=== PATIENT | male | born 1990 | race Caucasian/White ===

== ENCOUNTER → 2021-02-03 11:20 | Outpatient (CLI) | payer OTHER, SELFPAY ==
[2021-02-03 12:05] LABS: Add Manual Diff / Slide Review NO; Basophils Absolute Auto 100 /uL (0-100); Basophils Percent Auto 0.8 % (0-2); Eosinophils Absolute Auto 800 /uL (0-450); Eosinophils Percent Auto 8.2 % (2-4); Hematocrit 47.3 % (41-53); Lymphocytes Absolute Auto 3300 /uL (1100-4500); Lymphocytes Percent Auto 35.5 % (25-40); Mean Corpuscular HGB Conc 33.7 % (30-36); Mean Corpuscular Hemoglobin 30.9 PG (26-34); Mean Corpuscular Volume 91.5 fL (80-100); Monocytes Absolute Auto 800 /uL (0-900); Monocytes Percent Auto 8.5 % (3-14); Neutrophils Absolute Auto 4300 /uL (1500-7000); Platelet Count 269 X10^3/uL (150-400); Red Blood Cell Count 5.17 X10^6/uL (4.5-5.9); Red Cell Distribution Width 13.3 % (11.6-14.8); White Blood Cell Count 9.2 X10^3/uL (4.5-11.0)
[2021-02-03 12:14] LABS: Alanine Aminotransferase 45 IU/L (<50); Albumin 4.7 g/dL (3.5-5.0); Albumin Globulin Ratio 1.5 (1.0-2.8); Alkaline Phosphatase 64 U/L (38-126); Aspartate Aminotransferase 34 IU/L (17-59); BUN Creatinine Ratio 15.1 (6-22); Bilirubin Total 1.2 mg/dL (0.2-1.3); Blood Urea Nitrogen 13 mg/dL (9-20); Calcium 9.7 mg/dL (8.4-10.2); Carbon Dioxide 26 mmol/L (22-32); Chloride 103 mmol/L (98-107); Cholesterol 239 mg/dL (140-199); Estimated Glomerular Filt Rate > 60.0 mL/min (>60); Globulin 3.1 g/dL (1.7-4.1); Glucose 113 mg/dL (70-100); HDL Cholesterol 54 mg/dL (40-60); HEMOLYSIS < 15 (0-50); LDL Cholesterol Calculated 162 mg/dL (<100); Potassium 4.5 mmol/L (3.4-5.1); Sodium 136 mmol/L (137-145); Total Protein 7.8 g/dL (6.3-8.2); Triglycerides 113 mg/dL (35-150)
[2021-02-03 13:25] LABS: Creatinine Urine Random 159.4 mg/dL
[2021-02-03 13:30] LABS: Microalbumi Creatinin Ratio Ur 6.2 ug/mg CR (<30)
== END ==
PROVIDERS: PCP Family Medicine; Referring Provider Family Medicine; Visit Provider Family Medicine
DX: R03.0 Elevated blood-pressure reading, without diagnosis of hypertension (principal); Z68.31 Body mass index [BMI] 31.0-31.9, adult
CPT/HCPCS: 36415; 80053; 80061; 82043; 82570; 84443; 85025

== ENCOUNTER 2021-03-12 17:29 | Emergency (ER) | payer OTHER, SELFPAY ==
[2021-03-12 17:36] VITALS: BP 184/86; PULSE 91; RESP 20; TEMP 36.6; O2SAT 99
--- NOTE | 2021-03-12 17:39 | DI.RAD.S_ITS ---
PROCEDURE: XR ELBOW LT MIN 3V INDICATIONS: fall TECHNIQUE: 3 views of the elbow were acquired. COMPARISON: None. FINDINGS: Bones: There is an apparent faint avulsion fracture seen along the radial head on 1 image. No additional focal plain film abnormality can be seen. Soft tissues: No elbow joint effusion. No suspicious soft tissue calcifications. IMPRESSION: Apparent avulsion fracture seen of the radial head on 1 image. If it would be helpful for clinical management decision making, please consider a dedicated elbow CT for further evaluation. Dictated by: Patel Ibrahim M.D. on 03/12/2021 at 16:55 Approved by: Patel Ibrahim M.D. on 03/12/2021 at 16:56
--- NOTE | 2021-03-12 19:01 | ED_ITS ---
HPI - Extremity Injury (Upper) General Chief Complaint: Extremity Injury, Upper Stated Complaint: Possible Left Arm Break Time Seen by Provider: 03/12/21 18:40 Source: patient Mode of arrival: Ambulatory History of Present Illness HPI narrative: Patient here with family. Complains injury to the left elbow. He states he jumped over a fence and caught a chain that tangled up with his foot causing him to fall the left side. Abrasion to the left patella. Denies any knee pain. Needs tetanus shot. States he felt pain immediately to his left elbow with deformity prior to arrival he states he moved his elbow and felt it pop back in place. No numbness tingling or weakness. No prior injury to this elbow. Denies any other injuries to the head neck abdomen chest back pelvis or hips. Related Data Previous Rx's Medication Instructions Recorded amlodipine 5 mg tablet 5 mg PO DAILY #90 tab 02/21/21 hydrocodone 5 mg-acetaminophen 325 1 tab PO Q6H PRN #12 tab 03/12/21 mg tablet ondansetron 4 mg disintegrating 4 mg PO Q8H PRN #10 tab 03/12/21 tablet Allergies Allergy/AdvReac Type Severity Reaction Status Date / Time From ZITHROMAX Allergy Severe THROAT Uncoded 02/21/21 16:39 SWELLING Review of Systems Review of Systems Narrative: GENERAL: Denies chills, fatigue, malaise, fever, sweats. MUSCULOSKELETAL: Complaint muscle or bony pain SKIN: Denies rash, skin lesions, complains abrasion NEUROLOGIC: Denies weakness, numbness ROS Unobtainable: All systems reviewed & are unremarkable except as noted in HPI and below Patient History Medical History Hyperlipidemia Hypertension Nicotine dependence Social History Smoking Status: Current every day smoker Smoking Status: Current every day smoker alcohol intake frequency: 3 or more drinks per day Substance Use Type: marijuana Exam Narrative Exam Narrative: GENERAL: in no distress, not toxic not dyspneic HEAD: Normocephalic. EXTREMITIES: No gross deformities. Examination left lower extremity small abrasion to the patella. Nontender knee. Full flexion extension without any pain. Examination left upper extremity. Nontender wrist and shoulder. There is tenderness diffuse to the elbow. There is bruising medially to the elbow. Limited supination pronation due to pain. However able to flex the elbow to 90? and fully extend the elbow. 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 NEURO: AOx4. SKIN: Warm and dry PSYCH: Not anxious, is cooperative Initial Vital Signs Initial Vital Signs: Vital Signs Temperature 98 F 03/12/21 17:36 Pulse Rate 91 H 03/12/21 17:36 Respiratory Rate 20 03/12/21 17:36 Blood Pressure 184/86 H 03/12/21 17:36 Pulse Oximetry 99 03/12/21 17:36 Course Course Course Narrative: No new issues during course of stay Orders Ordered: ED Orders 03/12/21 17:39 XR elbow LT min 3V Stat Discontinued Medications Hydrocodone Bitart/Acetaminophen (Hydrocodone/Acet 5/325 Tablet) 2 tab PO NOW ONE Stop: 03/12/21 18:52 Last Admin: 03/12/21 19:08 Dose: 2 tab Documented by: TIANA Bacitracin (Bacitracin Oint 0.9 Gm Pckt) 1 applic TOP NOW ONE Stop: 03/12/21 19:10 Last Admin: 03/12/21 19:13 Dose: 1 applic Documented by: TIANA Diphtheria/Tetanus/Acell Pertussis (Tet,Diph,Pertuss(Acell),Vac/Pf 0.5 Ml Syringe) 0.5 ml IM .ONCE ONE Stop: 03/12/21 18:56 Last Admin: 03/12/21 19:23 Dose: Not Given Documented by: TIANA Ondansetron HCl (Ondansetron 4 Mg Odt) 4 mg SL NOW ONE Stop: 03/12/21 18:52 Last Admin: 03/12/21 19:08 Dose: 4 mg Documented by: TIANA Reevaluation(s) Reevaluation #1: Spoke with patient and results of treatment plan. They agree. Time: 19:04 Consultations Consultation #1: Spoke with Orthopedics, Dr. Arreaga he reviewed the films. Place patient in sling. Follow-up in the clinic within a week for recheck and possible physical therapy. Time: 19:04 Vital Signs Vital signs: Vital Signs - 8 hr 03/12/21 19:25 Pulse Rate 97 H Respiratory Rate 16 Blood Pressure 165/92 H Pulse Oximetry 97 MDM - Extremity Injury (Upper) Differential Diagnosis Differential diagnosis: Likely fracture of humerus and other (Elbow fracture strain/sprain) Imaging Data Extremity x-ray #1: Radiologist's Impression: [address] [id number] ReportSigned Patient: Juan Carlos Gusman JMR#: [id number]: 1990Acct:[id number]/Sex: 30 / MDate of Service: 03/12/21Loc: EDAccession Number: [id number] Procedure: XR elbow LT min 3V Ordering Provider: Randall Bear D.O. PROCEDURE: XR ELBOW LT MIN 3V INDICATIONS: fall TECHNIQUE: 3 views of the elbow were acquired. COMPARISON: None. FINDINGS: Bones: There is an apparent faint avulsion fracture seen along the radial head on 1 image. No additional focal plain film abnormality can be seen. Soft tissues: No elbow joint effusion. No suspicious soft tissue calcifications. IMPRESSION: Apparent avulsion fracture seen of the radial head on 1 image. If it would be helpful for clinical management decision making, please consider a dedicated elbow CT for further evaluation. Dictated by: Patel Ibrahim M.D. on 03/12/2021 at 16:55 Approved by: Patel Ibrahim M.D. on 03/12/2021 at 16:56 [facility] Narrative Medical decision making narrative: Appropriate for discharge home. Arm is audra rovascularly intact. Reviewed return precautions with patient and . They agree for discharge plan. Orthopedic follow-up given. Pain is controlled. Discharge Plan Departure Patient Disposition: Home Clinical Impression: Left radial fracture Qualifiers: Encounter type: initial encounter Radius location: head Fracture type: closed Fracture alignment: nondisplaced Qualified Code(s): S52.125A - Nondisplaced fracture of head of left radius, initial encounter for closed fracture Abrasion of knee, left Qualifiers: Encounter type: initial encounter Qualified Code(s): S80.212A - Abrasion, left knee, initial encounter Instructions: DI for Elbow Fracture Activity Restrictions/Additional Instructions: No driving operating machinery tonight or while taking prescribed pain medication. Use sling for comfort. Call provided orthopedic office tomorrow morning for office recheck within a week, may need physical therapy for your elbow injury. Return if worse or any questions concerns. Clean knee skin injury twice a day with warm soap and water and apply thin layer of topical antibiotic Prescriptions: New hydrocodone-acetaminophen 5-325 mg tablet 1 tab PO Q6H PRN (Reason: pain) Qty: 12 RF: 0 ondansetron 4 mg tablet,disintegrating 4 mg PO Q8H PRN (Reason: nausea and vomiting) Qty: 10 RF: 0 No Action amlodipine 5 mg tablet 5 mg PO DAILY Qty: 90 RF: 0 Referrals: Rony Schaefer MD [Primary Care Provider] - Maria Luisa Arreaga MD [Physician] - Stand Alone Forms: Work Release Note
[2021-03-12] MEDS: HYDROCODONE/ACET 5/325 TABLET 2 TAB PO (19:08)
[2021-03-12] MEDS: ONDANSETRON 4 MG ODT SL (19:08)
[2021-03-12] MEDS: BACITRACIN OINT 0.9 GM PCKT 1 APPLIC TOP (19:13)
--- NOTE | 2021-03-12 19:23 | PC.NURSE ---
Pt refused tetanus shot. Educated on risks and verbalized understanding
[2021-03-12 19:25] VITALS: BP 165/92; PULSE 97; RESP 16; O2SAT 97
== END 2021-03-12 19:26 | disposition home or self-care (01) ==
PROVIDERS: Emergency Provider Emergency Medicine; PCP Family Medicine
DX: S52.125A Nondisplaced fracture of head of left radius, initial encounter for closed fracture (principal); S80.212A Abrasion, left knee, initial encounter; W19.XXXA Unspecified fall, initial encounter
CPT/HCPCS: 73080; 99283

== ENCOUNTER → 2022-02-06 10:02 | Outpatient (CLI) | payer OTHER, SELFPAY ==
[2022-02-06 10:16] LABS: Semen Sperm Prescence Post-Vas Absent (ABSENT)
== END ==
PROVIDERS: PCP Family Medicine; Referring Provider Family Medicine; Visit Provider Family Medicine
DX: Z30.2 Encounter for sterilization (principal)
CPT/HCPCS: 89321

== ENCOUNTER 2024-05-03 21:55 | Emergency (ER) | payer OTHER, SELFPAY ==
[2024-05-03 21:58] VITALS: BP 167/89; PULSE 98; RESP 16; TEMP 36.6; O2SAT 100; BMI 25.7
--- NOTE | 2024-05-03 22:04 | EKG_ITS ---
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
--- NOTE | 2024-05-03 22:04 | DI.RAD.S_ITS ---
PROCEDURE: XR CHEST 1V INDICATIONS: chest pain TECHNIQUE: One view of the chest was acquired. COMPARISON: None. FINDINGS: Surgical changes and devices: None. Lungs and pleura: Lungs are clear. No pleural effusions or pneumothorax. Mediastinum: Mediastinal contours appear normal. Heart size is normal. Bones and chest wall: No suspicious bony lesions. Overlying soft tissues appear unremarkable. IMPRESSION: No acute cardiopulmonary abnormality is seen. Dictated by: Alfredito Johnson M.D. on 05/03/2024 at 22:56 Approved by: Alfredito Johnson M.D. on 05/03/2024 at 22:56
[2024-05-03 22:24] LABS: Add Manual Diff / Slide Review NO; Basophils Absolute Auto 100 /uL (0-100); Basophils Percent Auto 1.3 % (0-2); Eosinophils Absolute Auto 600 /uL (0-450); Eosinophils Percent Auto 6.4 % (2-4); Hemoglobin 15.2 g/dL (13.5-17.5); Lymphocytes Absolute Auto 2900 /uL (1100-4500); Lymphocytes Percent Auto 29.1 % (25-40); Mean Corpuscular HGB Conc 34.5 % (30-36); Mean Corpuscular Volume 95.5 fL (80-100); Monocytes Absolute Auto 1200 /uL (0-900); Monocytes Percent Auto 12.2 % (3-14); Neutrophils Absolute Auto 5000 /uL (1500-7000); Platelet Count 291 X10^3/uL (150-400); Red Blood Cell Count 4.61 X10^6/uL (4.5-5.9); Red Cell Distribution Width 13.8 % (11.6-14.8); White Blood Cell Count 9.8 X10^3/uL (4.5-11.0)
[2024-05-03 22:31] LABS: INR 0.9 (0.9-1.3); Prothrombin Time 10.4 SECONDS (9.4-12.5)
[2024-05-03 22:34] LABS: PTT Partial Thromboplastin Tim 32 SECONDS (25.1-36.5)
[2024-05-03 22:36] LABS: Alanine Aminotransferase 75 IU/L (<50); Albumin 4.3 g/dL (3.5-5.0); Albumin Globulin Ratio 1.3 (1.0-2.8); Alkaline Phosphatase 83 U/L (38-126); Aspartate Aminotransferase 57 IU/L (17-59); BUN Creatinine Ratio 9.2 (6-22); Bilirubin Total 0.7 mg/dL (0.2-1.3); Blood Urea Nitrogen 6 mg/dL (9-20); Calcium 8.9 mg/dL (8.4-10.2); Carbon Dioxide 21 mmol/L (22-32); Chloride 101 mmol/L (98-107); Creatine Kinase 154 U/L (55-170); Estimated Glomerular Filt Rate > 60 mL/min (>60); Globulin 3.3 g/dL (1.7-4.1); Glucose 130 mg/dL (70-100); HEMOLYSIS < 15 (0-50); Lipase 408 U/L (23-300); Magnesium 1.7 mg/dL (1.6-2.3); Potassium 3.2 mmol/L (3.4-5.1); Sodium 130 mmol/L (137-145); Total Protein 7.6 g/dL (6.3-8.2)
[2024-05-03 22:38] VITALS: PULSE 82; RESP 21; O2SAT 100
[2024-05-03 22:39] VITALS: BP 139/88; PULSE 82; RESP 14; O2SAT 100
[2024-05-03 22:47] LABS: NT-proBNP (BNP-Adult 18+) < 20 pg/mL (<125); Troponin I < 0.012 ng/mL (0.01-0.034)
--- NOTE | 2024-05-03 22:58 | PC.NURSE ---
Patient states having respiratory infection for the past week with a cough, today presents with some chest pain that is worse when coughing or lying on his side. Patient denies any n/v. Patient takes daily medication for hypertension
[2024-05-03 23:00] VITALS: BP 146/81; PULSE 81; RESP 14; O2SAT 100
[2024-05-03 23:30] VITALS: BP 163/86; PULSE 80; RESP 15; O2SAT 99
--- NOTE | 2024-05-03 23:34 | ED.CHESTPAIN ---
HPI - Chest Pain General Chief Complaint: Chest Pain Stated Complaint: chest pain, lightheaded getting worse Time Seen by Provider: 05/03/24 23:34 Source: patient and family Mode of arrival: Ambulatory History of Present Illness HPI narrative: Patient is a 34-year-old male who has a history of smoking about a pack a day for 16 years ELOINA and hypertension he is adopted does not know his family history presenting today with left-sided chest pain. He reports every time he breathes moves or coughs there is 1 area of his chest that is sharp and stabbing. It is nonradiating. It has been ongoing for a day or 2. He reports that he was playing a lot of golf he is possible he injured it but he has not really sure. Coughing definitely hurts. And he can push on his chest and make it hurt more. Related Data Previous Rx's Medication Instructions Recorded amlodipine 5 mg tablet 10 mg (2 x 5 mg) PO DAILY #180 tabs 01/12/24 bupropion HCl 150 mg 24 hr tablet, 150 mg PO QAM #60 tabs 04/16/24 extended release (Wellbutrin XL) Allergies Allergy/AdvReac Type Severity Reaction Status Date / Time From ZITHROMAX Allergy Severe THROAT Uncoded 05/03/24 22:04 SWELLING Patient History Medical History Mixed anxiety and depressive disorder Varicose veins of left lower extremity Hypertension Hyperlipidemia Nicotine dependence Social History Smoking Status: Current every day smoker Smoking Status: Current every day smoker alcohol intake frequency: 3 or more drinks per day Substance Use Type: marijuana Exam Initial Vital Signs Initial Vital Signs: Vital Signs Temperature 97.9 F 05/03/24 21:58 Pulse Rate 98 H 05/03/24 21:58 Respiratory Rate 16 05/03/24 21:58 Blood Pressure 167/89 H 05/03/24 21:58 Pulse Oximetry 100 05/03/24 21:58 Oxygen Delivery Method Room Air 05/03/24 21:58 GENERAL: Alert well-appearing 34 old male and in no acute distress. HEENT: Head atraumatic,EOMI, pupils reactive, face symmetric, moist mucous membranes CARDIOVASCULAR: Regular rate and rhythm without murmurs, rubs or gallops. Pain left anterior chest about rib 4 and 5 reproducible with palpation RESPIRATORY: Breath sounds equal bilaterally, no wheezes rales or rhonchi. ABDOMEN: Soft, nontender. Normoactive bowel sounds all 4 quadrants. No guarding or rebound. EXTREMITIES: Normal range of motion, no clubbing or edema. Neurovascularly intact NEUROLOGICAL: Alert and oriented x4.Normal gait and speech. Cranial nerves II through XII grossly intact. SKIN: Warm, dry, no laceration, no petechiae, no rashes or lesions. Scores HEART Score Heart Score history: Slightly Suspicious Heart Score EKG: Normal Heart Score Age: < 45 years old Heart Score risk factors: > 3 risk factors or hx of atherosclerotic disease Heart Score troponin: < or = to normal limit Heart Score Total: 2 Course Orders Ordered: ED Orders 05/03/24 22:04 XR chest 1V Stat EKG-12 Lead Stat 05/03/24 22:15 Complete Blood Count AUTO DIFF Stat Comprehensive Metabolic Panel Stat Lipase Stat Magnesium Stat NT-proBNP (BNP-Adult 18+) Stat PTT Partial Thromboplastin [place] Stat Prothrombin Time INR Stat Troponin & CK Cardiac Panel Stat Discontinued Medications Aspirin (Aspirin 81 Mg Chew Tab) 324 mg PO NOW ONE Stop: 05/03/24 22:05 Last Admin: 05/03/24 23:41 Dose: Not Given Documented By: Vital Signs Vital signs: Vital Signs - 8 hr 05/03/24 21:58 05/03/24 22:38 05/03/24 22:39 Temperature 97.9 F Pulse Rate 98 H 82 82 Respiratory Rate 16 21 14 Blood Pressure 167/89 H Pulse Oximetry 100 100 100 Oxygen Delivery Method Room Air 05/03/24 22:39 05/03/24 23:00 05/03/24 23:00 Temperature Pulse Rate 81 Respiratory Rate 14 Blood Pressure 139/88 146/81 H Pulse Oximetry 100 Oxygen Delivery Method 05/03/24 23:30 05/03/24 23:30 Temperature Pulse Rate 80 Respiratory Rate 15 Blood Pressure 163/86 H Pulse Oximetry 99 Oxygen Delivery Method MDM - Chest Pain Lab Data 05/03/24 22:15 05/03/24 22:15 Labs: Lab Results 05/03/24 Range/Units 22:15 WBC 9.8 (4.5-11.0) X10^3/uL RBC 4.61 (4.5-5.9) X10^6/uL Hgb 15.2 (13.5-17.5) g/dL Hct 44.0 (41-53) % MCV 95.5 (80-100) fL MCH 33.0 (26-34) PG MCHC 34.5 (30-36) % RDW 13.8 (11.6-14.8) % Plt Count 291 (150-400) X10^3/uL Neut % (Auto) 51.0 (50-75) % Lymph % (Auto) 29.1 (25-40) % Jessamine % (Auto) 12.2 (3-14) % Eos % (Auto) 6.4 H (2-4) % Baso % (Auto) 1.3 (0-2) % Neut # (Auto) 5000 (5289-3918) /uL Lymph # (Auto) 2900 (5499-7809) /uL Jessamine # (Auto) 1200 H (0-900) /uL Eos # (Auto) 600 H (0-450) /uL Baso # (Auto) 100 (0-100) /uL PT 10.4 (9.4-12.5) SECONDS INR 0.9 (0.9-1.3) APTT 32 (25.1-36.5) SECONDS Sodium 130 L (137-145) mmol/L Potassium 3.2 L (3.4-5.1) mmol/L Chloride 101 (98-107) mmol/L Carbon Dioxide 21 L (22-32) mmol/L BUN 6 L (9-20) mg/dL Creatinine 0.65 L (0.66-1.25) mg/dL Estimated GFR > 60 (>60) mL/min BUN/Creatinine Ratio 9.2 (6-22) Glucose 130 H (70-100) mg/dL Calcium 8.9 (8.4-10.2) mg/dL Magnesium 1.7 (1.6-2.3) mg/dL Total Bilirubin 0.7 (0.2-1.3) mg/dL AST 57 (17-59) IU/L ALT 75 H (<50) IU/L Alkaline Phosphatase 83 (38-126) U/L Total Creatine Kinase 154 (55-170) U/L Troponin I < 0.012 (0.01-0.034) ng/mL NT-Pro-B Natriuret Pep < 20 (<125) pg/mL Total Protein 7.6 (6.3-8.2) g/dL Albumin 4.3 (3.5-5.0) g/dL Globulin 3.3 (1.7-4.1) g/dL Albumin/Globulin Ratio 1.3 (1.0-2.8) Lipase 408 H (23-300) U/L Imaging Data Chest x-ray: Radiologist's Impression: PROCEDURE: XR CHEST 1V INDICATIONS: chest pain TECHNIQUE: One view of the chest was acquired. COMPARISON: None. FINDINGS: Surgical changes and devices: None. Lungs and pleura: Lungs are clear. No pleural effusions or pneumothorax. Mediastinum: Mediastinal contours appear normal. Heart size is normal. Bones and chest wall: No suspicious bony lesions. Overlying soft tissues appear unremarkable. IMPRESSION: No acute cardiopulmonary abnormality is seen. Dictated by: Alfredito Johnson M.D. on 05/03/2024 at 22:56 ECG Data Attestation: I personally reviewed and interpreted this ECG as follows: Prior ECG tracings: not available for review Interpretation: Normal sinus rhythm rate 86 KS interval 146 QRS [address] changes or T-wave inversions MDM Narrative Medical decision making narrative: Patient 34-year-old male presents today with left-sided chest pain. Reports that it has been there for a couple of days definitely worse with palpation moving and coughing. He has risk factors of sleep apnea does not currently wear a CPAP needs sleep study hypertension and smoking. He is adopted does not know his family history. We discussed at length risk factors and possible need for further workup. He has a heart score of 2. Today his symptoms are most consistent with costochondritis since pain is so reproducible and worse with coughing. It is pinpoint and 1 particular area Blood work has been reviewed he has a negative troponin mild hypokalemia with potassium of 3.2 but otherwise overall reassuring EKGs reviewed without any ischemia T-wave inversions or ST changes Chest x-ray is negative Discharge Plan Departure Patient Disposition: Home Clinical Impression: Acute costochondritis Instructions: DI for Costochondritis Activity Restrictions/Additional Instructions: *You have been diagnosed with costochondritis *What to do: At this time I do recommend that you get an outpatient sleep study talk to your provider about possibly an echo or stress test but not necessarily indicated at this time. Recommend supportive care for your chest pain now Tylenol or Motrin as needed *Continue to take medications as directed *Follow up with your primary care provider in 2-3 days or call [phone] *Return to ER if you should have increasing pain shortness of breath, jaw pain arm pain or any new, worsening or concerning symptoms Prescriptions: No Action amlodipine 5 mg tablet 10 mg PO DAILY Qty: 180 0RF bupropion HCl [Wellbutrin XL] 150 mg tablet extended release 24 hr 150 mg PO QAM Qty: 60 0RF Referrals: Rony Schaefer MD [Primary Care Provider] - Stand Alone Forms: Patient Portal/API
== END 2024-05-04 00:06 | disposition home or self-care (01) ==
PROVIDERS: Emergency Provider Emergency Medicine; PCP Family Medicine
DX: M94.0 Chondrocostal junction syndrome [Tietze] (principal); I10 Essential (primary) hypertension; F17.210 Nicotine dependence, cigarettes, uncomplicated
CPT/HCPCS: 71045; 80053; 82550; 83690; 83735; 83880; 84484; 85025; 85610; 85730; 93005; 99283; 99284

== ENCOUNTER 2024-09-24 08:20 | Emergency (ER) | payer OTHER, SELFPAY ==
[2024-09-24] VITALS (10 sets, daily range): BP systolic 145–186; BP diastolic 83–107; PULSE 71–91; RESP 15–30; TEMP 36.8; O2SAT 97–100; BMI 29.0
--- NOTE | 2024-09-24 08:32 | EKG_ITS ---
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
--- NOTE | 2024-09-24 08:32 | DI.RAD.S_ITS ---
PROCEDURE: XR CHEST 1V INDICATIONS: chest pain TECHNIQUE: One view of the chest was acquired. COMPARISON: [facility], CR, XR CHEST 1V, 05/03/2024, 22:10. FINDINGS: Surgical changes and devices: None. Lungs and pleura: Lungs are clear. No pleural effusions or pneumothorax. Mediastinum: Mediastinal contours appear normal. Heart size is normal. Bones and chest wall: No suspicious bony lesions. Overlying soft tissues appear unremarkable. IMPRESSION: No acute cardiopulmonary abnormality is seen. Dictated by: Peter Graham M.D. on 09/24/2024 at 8:46 Approved by: Peter Graham M.D. on 09/24/2024 at 8:46
--- NOTE | 2024-09-24 08:33 | ED.GENADULT ---
HPI - General Adult General Chief complaint: Eye Problems Stated complaint: high BP and vision changes, sent by [facility] Time Seen by Provider: 09/24/24 08:31 History of Present Illness HPI narrative: 34-year-old gentleman with history of mixed anxiety and depressive disorder, hypertension, hyperlipidemia, sleep apnea, tobacco use continuing initially presented to urgent care complaining of elevated blood pressure and headache with blurry vision. Sent to the ER for further evaluation. He states that he has been free from alcohol and cocaine for a full month and is doing well in his overall recovery. He did not remember to take his evening dose of amlodipine last night but typically has been taking it and blood pressures have been controlled. His primary concern is a week of visual changes. He notes seems to be primarily in his right eye. With the extreme right lateral gaze he has double vision and with looking up he has double vision. He has not noting headaches right now. No trauma appreciated. No motor abnormalities and no paresthesias. Related Data Previous Rx's Medication Instructions Recorded bupropion HCl 150 mg 24 hr tablet, 150 mg PO QAM #70 tabs 06/23/24 extended release (Wellbutrin XL) amlodipine 10 mg tablet 10 mg PO DAILY #60 tabs 09/24/24 amlodipine 5 mg tablet 10 mg (2 x 5 mg) PO DAILY #180 tabs 09/24/24 Allergies Allergy/AdvReac Type Severity Reaction Status Date / Time azithromycin Allergy Severe Swelling Verified 09/24/24 09:22 of Lip/Tongue/Throat Review of Systems Review of Systems Narrative: Pertinent positive and negative findings as per HPI Patient History Medical History Mixed anxiety and depressive disorder Varicose veins of left lower extremity Hypertension Hyperlipidemia Nicotine dependence Social History Smoking Status: Current every day smoker Smoking Status: Current every day smoker alcohol intake frequency: 3 or more drinks per day Exam Initial Vital Signs Initial Vital Signs: Vital Signs Pulse Rate 91 H 09/24/24 08:23 Pulse Oximetry 98 09/24/24 08:23 General: Healthy appearing, in no acute distress. Able to give a complete and coherent history. Well-nourished well-developed HEENT: Moist mucous membranes, normal sclera with reactive pupils, Extraocular eye movement is intact in all [place]. With both eyes he notes extreme right lateral gaze he complains of double vision. With extreme upward gaze he complains of double vision. With the right eye extreme lateral and upward he has significant blurring with halos around objects. Left eye has no abnormalities on direct testing. Funduscopic exam on the right side suggests some arterial nicking but no obvious bleed or retinal abnormalities Neck: No JVD, supple Respiratory: Lungs are clear to auscultation, no wheezing no rales no rhonchi. Full and symmetrical air movement Cardiac: Regular rate and rhythm no murmurs no bruits Abdomen: Soft, nontender, good bowel tones, no flank pain Skin: Warm and dry, no rashes Neurologic: Grossly neurologically intact with no obvious asymmetries or abnormalities Extremities: No trauma, well perfused Psych: Cooperative, appropriate insight and affect NIH score = 0 Course Orders Ordered: ED Orders 09/24/24 08:32 XR chest 1V Stat EKG-12 Lead Stat 09/24/24 08:54 Complete Blood Count AUTO DIFF Stat Comprehensive Metabolic Panel Stat Troponin I Stat 09/24/24 09:10 MR head/brain wo/w con Stat Discontinued Medications Amlodipine Besylate (Amlodipine 5 Mg Tablet) 10 mg PO NOW ONE Stop: 09/24/24 09:12 Last Admin: 09/24/24 09:20 Dose: 10 mg Documented By: Vital Signs Vital signs: Vital Signs - 8 hr 09/24/24 08:23 09/24/24 08:24 09/24/24 08:24 Temperature Pulse Rate 91 H 87 Respiratory Rate Blood Pressure 186/106 H Pulse Oximetry 98 99 Oxygen Delivery Method 09/24/24 08:29 09/24/24 08:30 09/24/24 08:30 Temperature 98.2 F Pulse Rate 91 H 81 Respiratory Rate 16 15 Blood Pressure 186/106 H 157/83 H Pulse Oximetry 99 98 Oxygen Delivery Method Room Air Room Air 09/24/24 09:03 09/24/24 09:14 09/24/24 09:14 Temperature Pulse Rate 76 80 Respiratory Rate 27 H 30 H Blood Pressure 160/107 H Pulse Oximetry 98 Oxygen Delivery Method 09/24/24 09:30 Temperature Pulse Rate Respiratory Rate Blood Pressure Pulse Oximetry 97 Oxygen Delivery Method Room Air Medical Decision Making Lab Data 09/24/24 08:54 09/24/24 08:54 Labs: Lab Results 09/24/24 Range/Units 08:54 WBC 12.2 H (4.5-11.0) X10^3/uL RBC 4.64 (4.5-5.9) X10^6/uL Hgb 14.7 (13.5-17.5) g/dL Hct 42.0 (41-53) % MCV 90.6 (80-100) fL MCH 31.6 (26-34) PG MCHC 34.9 (30-36) % RDW 13.5 (11.6-14.8) % Plt Count 327 (150-400) X10^3/uL Neut % (Auto) 68.0 (50-75) % Lymph % (Auto) 19.5 L (25-40) % [place] % (Auto) 6.7 (3-14) % Eos % (Auto) 4.7 H (2-4) % Baso % (Auto) 1.1 (0-2) % Neut # (Auto) 8300 H (6472-1454) /uL Lymph # (Auto) 2400 (9217-9115) /uL [place] # (Auto) 800 (0-900) /uL Eos # (Auto) 600 H (0-450) /uL Baso # (Auto) 100 (0-100) /uL Sodium 135 L (137-145) mmol/L Potassium 4.5 (3.4-5.1) mmol/L Chloride 102 (98-107) mmol/L Carbon Dioxide 23 (22-32) mmol/L BUN 12 (9-20) mg/dL Creatinine 0.72 (0.66-1.25) mg/dL Estimated GFR > 60 (>60) mL/min BUN/Creatinine Ratio 16.7 (6-22) Glucose 120 H (70-100) mg/dL Calcium 9.2 (8.4-10.2) mg/dL Total Bilirubin 0.6 (0.2-1.3) mg/dL AST 37 (17-59) IU/L ALT 51 H (<50) IU/L Alkaline Phosphatase 52 (38-126) U/L Troponin I < 0.012 (0.01-0.034) ng/mL Total Protein 7.9 (6.3-8.2) g/dL Albumin 4.5 (3.5-5.0) g/dL Globulin 3.4 (1.7-4.1) g/dL Albumin/Globulin Ratio 1.3 (1.0-2.8) Urine Dip Bedside Urine Glucose Negative Bedside Urine Bilirubin - Negative Bedside Urine Ketone - Negative Urine Specific [place] 1.010 Bedside Urine Occult Blood - Negative Bedside Urine pH 6.0 Bedside Urine Protein - Negative Bedside Urine Urobilinogen - Negative Bedside Urine Nitrite - Negative Bedside Urine Leukocytes - Negative Esterase Point of care testing: Urine Dip Bedside Urine Glucose Negative Bedside Urine Bilirubin - Negative Bedside Urine Ketone - Negative Urine Specific [place] 1.010 Bedside Urine Occult Blood - Negative Bedside Urine pH 6.0 Bedside Urine Protein - Negative Bedside Urine Urobilinogen - Negative Bedside Urine Nitrite - Negative Bedside Urine Leukocytes - Negative Esterase Imaging Data MRI brain: Radiologist's Impression: PROCEDURE: MR HEAD/BRAIN WO/W CON INDICATIONS: double vision acute with peripheral field loss, TECHNIQUE: Noncontrast axial T1 spin echo, axial T2 fast spin echo, sagittal and axial FLAIR, coronal T2 fast spin echo, axial gradient echo, axial diffusion and ADC through the brain. After the administration of contrast, axial and coronal and sagittal 3D VIBE or T1 spin echo with fat saturation through the brain. COMPARISON: None. FINDINGS: Image quality: Excellent. CSF Spaces: Basal cisterns are patent. No extra-axial fluid collections. Ventricles are normal in size and shape. Brain: No midline shift. No intracranial bleeds or masses. No abnormal intracranial enhancement. The brainstem appears normal. Diffusion-weighted images demonstrate no acute infarct. No chronic ischemic insults. Normal intravascular flow voids are present. Skull and face: Calvarial marrow is normal in signal. Orbits appear normal. Sinuses: Acute on chronic sinusitis involving the left maxillary sinus and right sphenoid sinus. Chronic bilateral anterior ethmoid opacification. Mastoids are clear. IMPRESSION: 1. No acute intracranial process. No deep white matter abnormality. No acute stroke, hemorrhage, or mass. 2. Acute on chronic left maxillary sinus disease and right sphenoid sinus disease. Chronic bilateral ethmoid disease. Dictated by: Wili Anne M.D. on 09/24/2024 at 11:05 MDM Narrative Medical decision making narrative: CC: A week of visual field changes and double vision Complicating co-morbidities: Hypertension, intermittently taking medications. Recent sobriety from alcohol and cocaine Data collected from: patient Differential considered: Stroke, retinal abnormality, optic nerve abnormality. Given normal extraocular eye movement I not suspicious for posterior I mass or entrapment. Symptoms are consistent with both elevated and lower blood pressure I do not think that this is hypertensive crisis Exam documented above, pertinent findings include: Aside from the visual abnormalities noted above remainder of exam is benign Lab Test results independently reviewed as above. Pertinent findings: CBC shows mild leukocytosis at 12.2 without left shift and lymphocytes are slightly elevated Chemistries are reassuring, glucose is slightly elevated, renal functions appropriate liver studies were unremarkable Troponin is undetectable Independently reviewed EKG: EKG shows sinus rhythm at a rate of 76 with out signs of ventricular hypertrophy Imaging studies independently reviewed: Chest x-ray shows no cardiomegaly or infiltrates MR brain does not show any evidence of stroke tumor, posterior ocular abnormalities mentioned of ethmoid and maxillary sinus fullness Treatments: Patient was given his usual 10 mg of amlodipine Discussion: 34-year-old gentleman with headache and mild visual changes. No evidence of intra-ocular, periocular abnormalities or stroke to exchange the visual changes. There is a mention of ethmoid sinusitis in the may be contributing. Blood work and overall presentation would suggest the sinusitis is not acute bacterial sinusitis may well benefit from intranasal wash we will discuss with the patient. Regarding his blood pressure he notes when he does take his amlodipine he does well, encouraged him to continue taking his amlodipine. I do not think this is an episode of hypertensive crisis, there was no indication for IV medications to control blood pressure or hospitalization this time. Findings reviewed with him and he is safe for discharge Discharge Plan Departure Patient Disposition: Home Clinical Impression: Benign essential hypertension, Change in vision Chronic sinusitis, unspecified Qualifiers: Sinusitis location: pansinusitis Qualified Code(s): J32.4 - Chronic pansinusitis Instructions: DI for Sinusitis, DI for High Blood Pressure Activity Restrictions/Additional Instructions: Thank you for coming in today The MRI of your brain is very reassuring. There was no evidence of stroke, masses, tumors or anything else that might be causing your mild eye complaints. There is a note of chronic sinusitis and inflammation in almost all of your sinuses. This is not bacterial. You may benefit from using a Neti pot to try and clean the sinuses out as much as possible physically. You do need to continue with the your amlodipine, I have refilled a prescription for 2 months knowing that you have an appointment with your primary care provider in about 6 weeks Congratulations on your clean living and avoiding both alcohol and cocaine. If you find that you are getting worse or develop any new symptoms, please feel free to return to the emergency department for further evaluation. Prescriptions: New amlodipine 10 mg tablet 10 mg PO DAILY Qty: 60 0RF No Action bupropion HCl [Wellbutrin XL] 150 mg tablet extended release 24 hr 150 mg PO QAM Qty: 70 0RF amlodipine 5 mg tablet 10 mg PO DAILY Qty: 180 0RF Referrals: Rony Schaefer MD [Primary Care Provider] - Stand Alone Forms: Patient Portal/API/Survey
[2024-09-24 09:05] LABS: Add Manual Diff / Slide Review NO; Basophils Absolute Auto 100 /uL (0-100); Basophils Percent Auto 1.1 % (0-2); Eosinophils Absolute Auto 600 /uL (0-450); Eosinophils Percent Auto 4.7 % (2-4); Hemoglobin 14.7 g/dL (13.5-17.5); Lymphocytes Absolute Auto 2400 /uL (1100-4500); Lymphocytes Percent Auto 19.5 % (25-40); Mean Corpuscular HGB Conc 34.9 % (30-36); Mean Corpuscular Hemoglobin 31.6 PG (26-34); Mean Corpuscular Volume 90.6 fL (80-100); Monocytes Absolute Auto 800 /uL (0-900); Monocytes Percent Auto 6.7 % (3-14); Neutrophils Absolute Auto 8300 /uL (1500-7000); Platelet Count 327 X10^3/uL (150-400); Red Blood Cell Count 4.64 X10^6/uL (4.5-5.9); Red Cell Distribution Width 13.5 % (11.6-14.8); White Blood Cell Count 12.2 X10^3/uL (4.5-11.0)
--- NOTE | 2024-09-24 09:10 | DI.MRI.S_ITS ---
PROCEDURE: MR HEAD/BRAIN WO/W CON INDICATIONS: double vision acute with peripheral field loss, TECHNIQUE: Noncontrast axial T1 spin echo, axial T2 fast spin echo, sagittal and axial FLAIR, coronal T2 fast spin echo, axial gradient echo, axial diffusion and ADC through the brain. After the administration of contrast, axial and coronal and sagittal 3D VIBE or T1 spin echo with fat saturation through the brain. COMPARISON: None. FINDINGS: Image quality: Excellent. CSF Spaces: Basal cisterns are patent. No extra-axial fluid collections. Ventricles are normal in size and shape. Brain: No midline shift. No intracranial bleeds or masses. No abnormal intracranial enhancement. The brainstem appears normal. Diffusion-weighted images demonstrate no acute infarct. No chronic ischemic insults. Normal intravascular flow voids are present. Skull and face: Calvarial marrow is normal in signal. Orbits appear normal. Sinuses: Acute on chronic sinusitis involving the left maxillary sinus and right sphenoid sinus. Chronic bilateral anterior ethmoid opacification. Mastoids are clear. IMPRESSION: 1. No acute intracranial process. No deep white matter abnormality. No acute stroke, hemorrhage, or mass. 2. Acute on chronic left maxillary sinus disease and right sphenoid sinus disease. Chronic bilateral ethmoid disease. Dictated by: Wili Anne M.D. on 09/24/2024 at 11:05 Approved by: Wili Anne M.D. on 09/24/2024 at 11:09
[2024-09-24 09:16] LABS: Alanine Aminotransferase 51 IU/L (<50); Albumin 4.5 g/dL (3.5-5.0); Albumin Globulin Ratio 1.3 (1.0-2.8); Alkaline Phosphatase 52 U/L (38-126); Aspartate Aminotransferase 37 IU/L (17-59); BUN Creatinine Ratio 16.7 (6-22); Bilirubin Total 0.6 mg/dL (0.2-1.3); Blood Urea Nitrogen 12 mg/dL (9-20); Calcium 9.2 mg/dL (8.4-10.2); Carbon Dioxide 23 mmol/L (22-32); Chloride 102 mmol/L (98-107); Estimated Glomerular Filt Rate > 60 mL/min (>60); Globulin 3.4 g/dL (1.7-4.1); Glucose 120 mg/dL (70-100); HEMOLYSIS < 15 (0-50); Potassium 4.5 mmol/L (3.4-5.1); Sodium 135 mmol/L (137-145); Total Protein 7.9 g/dL (6.3-8.2)
[2024-09-24] MEDS: AMLODIPINE 5 MG TABLET 10 MG PO (09:20)
[2024-09-24 09:28] LABS: Troponin I < 0.012 ng/mL (0.01-0.034)
== END 2024-09-24 11:41 | disposition home or self-care (01) ==
PROVIDERS: Emergency Provider Emergency Medicine; PCP Family Medicine
DX: I10 Essential (primary) hypertension (principal); R51.9 Headache, unspecified; H53.8 Other visual disturbances; J32.4 Chronic pansinusitis; R07.9 Chest pain, unspecified; Z72.0 Tobacco use
CPT/HCPCS: 36415; 70553; 71045; 80053; 81003; 84484; 85025; 93005; 99284

== ENCOUNTER → 2024-11-17 08:01 | Outpatient (CLI) | payer OTHER, SELFPAY ==
[2024-11-17 09:32] LABS: Add Manual Diff / Slide Review NO; Basophils Absolute Auto 100 /uL (0-100); Basophils Percent Auto 1.3 % (0-2); Eosinophils Absolute Auto 500 /uL (0-450); Eosinophils Percent Auto 6.5 % (2-4); Hematocrit 44.7 % (41-53); Hemoglobin 15.5 g/dL (13.5-17.5); Lymphocytes Absolute Auto 2300 /uL (1100-4500); Lymphocytes Percent Auto 30.6 % (25-40); Mean Corpuscular HGB Conc 34.7 % (30-36); Mean Corpuscular Volume 89.3 fL (80-100); Monocytes Absolute Auto 800 /uL (0-900); Monocytes Percent Auto 10.8 % (3-14); Neutrophils Absolute Auto 3900 /uL (1500-7000); Neutrophils Percent Auto 50.8 % (50-75); Platelet Count 327 X10^3/uL (150-400); Red Cell Distribution Width 13.5 % (11.6-14.8); White Blood Cell Count 7.7 X10^3/uL (4.5-11.0)
[2024-11-17 09:57] LABS: Alanine Aminotransferase 33 IU/L (<50); Albumin Globulin Ratio 1.7 (1.0-2.8); Alkaline Phosphatase 48 U/L (38-126); Aspartate Aminotransferase 27 IU/L (17-59); Blood Urea Nitrogen 19 mg/dL (9-20); Carbon Dioxide 27 mmol/L (22-32); Chloride 99 mmol/L (98-107); Cholesterol 229 mg/dL (140-199); Estimated Glomerular Filt Rate > 60 mL/min (>60); Globulin 2.9 g/dL (1.7-4.1); Glucose 132 mg/dL (70-99); HDL Cholesterol 54 mg/dL (40-60); HEMOLYSIS < 15 (0-50); LDL Cholesterol Calculated 159 mg/dL (<100); Potassium 4.9 mmol/L (3.4-5.1); Sodium 136 mmol/L (137-145); Total Protein 7.9 g/dL (6.3-8.2); Triglycerides 82 mg/dL (35-150)
[2024-11-17 10:31] LABS: TSH w/ Reflex to FT4 2.18 uIU/mL (0.47-4.68)
[2024-11-17 22:40] LABS: Apolipoprotein B 108 mg/dL (<90)
[2024-12-05 05:36] LABS: Testosterone Total 315.2 ng/dL (264.0-916.0)
== END ==
PROVIDERS: PCP Family Medicine; Referring Provider Family Medicine; Visit Provider Family Medicine
DX: Z00.00 Encounter for general adult medical examination without abnormal findings (principal); I10 Essential (primary) hypertension; E78.5 Hyperlipidemia, unspecified; R68.82 Decreased libido; F41.8 Other specified anxiety disorders; F17.200 Nicotine dependence, unspecified, uncomplicated
CPT/HCPCS: 36415; 80053; 80061; 82172; 84402; 84403; 84443; 85025

== ENCOUNTER → 2024-12-08 07:54 | Outpatient (CLI) | payer OTHER, SELFPAY ==
[2024-12-15 01:10] LABS: Testosterone Free 9.68 ng/dL (5.00-21.00); Testosterone Total 254.8 ng/dL (264.0-916.0)
== END ==
PROVIDERS: PCP Family Medicine; Referring Provider Family Medicine; Visit Provider Family Medicine
DX: R68.82 Decreased libido (principal); E78.2 Mixed hyperlipidemia; I10 Essential (primary) hypertension
CPT/HCPCS: 36415; 84402; 84403